=== PATIENT | male | born 1935 | race Caucasian/White ===

== ENCOUNTER 2017-05-14 11:40 | Inpatient (IN) | payer SELFPAY ==
[~2017-05-14] VITALS: Ht 170.2 cm; Wt 70.3 kg
--- NOTE | 2017-05-14 11:48 | NUR ---
pt walked to er with family members co coughing, hypoxia and tachypnea today, although the pt was on o2 at home.
--- NOTE | 2017-05-14 11:50 | NUR ---
replaced the nc with nrb on 15 litre, o2 sat improved to 96%.
[2017-05-14] MEDS ORDERED: AZIT250T PO (12:07)
[2017-05-14] MEDS ORDERED: LANS15CA13 PO (12:07)
[2017-05-14 12:22] LABS: BASOPHILS # (AUTO) 0.1 K/uL (0.0-8.0); BASOPHILS % (AUTO) 0.4 % (0.0-2.0); EOSINOPHILS # (AUTO) 0.2 K/uL (0.0-0.7); EOSINOPHILS % (AUTO) 1.2 % (0.0-7.0); LYMPHOCYTES # (AUTO) 0.9 K/UL (0.8-4.8); MEAN CORPUSCULAR HEMOGLOBIN 30.8 UUG (27.0-31.0); MEAN CORPUSCULAR HGB CONC 33 g/dL (32.0-37.0); MEAN CORPUSCULAR VOLUME 92.3 FL (82.0-92.0); MONOCYTES % (AUTO) 8.2 % (0.0-11.0); NEUTROPHILS # (AUTO) 10.3 K/UL (1.8-8.9); NEUTROPHILS % (AUTO) 83.2 % (38.5-71.5); PLATELET COUNT (AUTO) 229 K/UL (150-450); WHITE BLOOD COUNT (AUTO) 12.5 K/UL (4.0-11.2)
[2017-05-14 12:26] LABS: CARBON DIOXIDE 22 mmol/L (21-32); CHLORIDE 95 mmol/L (98-107); CREATININE 0.7 mg/dL (0.6-1.3); GLUCOSE 144 mg/dL (74-106); POTASSIUM 3.3 mmol/L (3.5-5.1); UREA NITROGEN, BLOOD 11 mg/dL (7-18)
[2017-05-14] MEDS ORDERED: ALBUTEROL SULFATE 2.5 MG/3 ML NEBU NEB ONE (12:30)
[2017-05-14 12:39] LABS: ALANINE AMINOTRANSFERASE 32 U/L (16-63); ALKALINE PHOSPHATASE 72 U/L (50-136); ASPARTATE AMINOTRANSFERASE 32 U/L (15-37); BILIRUBIN,DIRECT 0.4 mg/dL (0.0-0.2); TOTAL PROTEIN, SERUM 6.5 g/dL (6.4-8.2)
[2017-05-14] MEDS ORDERED: CLOPIDOGREL 75 MG TABLET PO ONE (13:00)
--- NOTE | 2017-05-14 13:10 | NUR ---
pt says feels better after the breathing tx, but is still 91% on mask. pt back to nrb with 15%, improved sat to 96%
[2017-05-14] MEDS ORDERED: CLOPIDOGREL 75 MG TABLET ONE (13:13)
[2017-05-14 13:59] LABS: *BILIRUBIN,URIN NEGATIVE (NEGATIVE); *BLOOD, URINE Trace-intact (NEGATIVE); *CLARITY,URINE CLEAR (CLEAR); *COLOR,URINE YELLOW (YELLOW); *KETONES,URINE NEGATIVE (NEGATIVE); *PROTEIN,URINE TRACE (NEGATIVE); LEUKOCYTE ESTERASE ,URINE NEGATIVE (NEGATIVE); NITRITE, URINE NEGATIVE (NEGATIVE); PH,URINE 6.5 (5.0-8.0); UGLUCOSE NEGATIVE (NEGATIVE)
[2017-05-14 14:06] LABS: BACTERIA,URINE NONE SEEN /HPF (NONE SEEN); MUCUS,URINE FEW /LPF (0-FEW); RBC,URINE 0-3 /HPF (0-3); SQUAMOUS EPITHELIAL CELL,UR FEW /HPF (NONE SEEN); WBC,URINE 0-3 /HPF (0-3)
[2017-05-14] MEDS ORDERED: IOHEXOL 350 100 ML INFUS..BTL ONE (14:14)
[2017-05-14] MEDS ORDERED: HEPARIN SODIUM,PORCINE/PF 100 UNIT/ML, 5ML SYR ONE (14:14)
[2017-05-14] MEDS ORDERED: IV NORMAL SALINE 250 ML IV ONE (14:14)
[2017-05-14 15:15] VITALS: BP 131/73
[2017-05-14] MEDS ORDERED: PIPERACILLIN SODIUM/TAZOBACTAM 3.375 G in IV DEXTROSE 5% 50 ML IV ONE (15:30)
[2017-05-14] MEDS ORDERED: PIPERACILLIN/TAZOBACTAM/D5W 50 ML IV ONE (15:47)
--- NOTE | 2017-05-14 16:49 | NUR ---
PT TRANSFERED TO FLOOR. PT STILL ON THE NRB, SAT 96%. AWARE.
--- NOTE | 2017-05-14 16:52 | NUR ---
FAMILY MEMBERS AT BEDSIDE THE WHOLE ER STAY. PT TALKING WITH THE FAMILY MEMBERS, TOLERATING NRB. PT VOIDED 2 TIMES IN THE URINAL. PT FAMILY MEMBERS PROVIDED SOME FOOD FOR PT.
[2017-05-14] MEDS ORDERED: MAGNESIUM HYDROXIDE 30 ML LIQUID UDC PO PRN (17:00)
[2017-05-14] MEDS ORDERED: ZOLPIDEM 5 MG TABLET PO PRN (17:00)
[2017-05-14] MEDS ORDERED: ONDANSETRON 4 MG/2 ML VIAL IV PRN (17:00)
--- NOTE | 2017-05-14 17:00 | NUR ---
ADMITTED FROM HOME VIA ER AN 81 YO MALE WITH CC OF SOB, DX PNEUMONIA ALERT AND VERBALLY RESPONSIVE ORIENTED X3 ON 15 LITERS NRM SATURATING 93%, WARM AND DRY SKIN NO ACUTE DISTRESS. DR SOSA AND SCAR CAMPBELL MADE AWARE OF ADMISSION. ROUTINE ADMISSION ASSESSMENT INITIATED. FAMILY AT BEDSIDE VERY SUPPORTIVE WITH CARE
[2017-05-14] MEDS ORDERED: FUROSEMIDE 20 MG/2 ML VIAL IV ONE (18:15)
[2017-05-14] MEDS: POTASSIUM CHLORIDE 50 ML IV SCH ×2 (18:42→20:01)
[2017-05-14] MEDS: IPRATROPIUM BROMIDE 0.5 MG/2.5 ML NEBU NEB PRN (19:11)
[2017-05-14] MEDS: ALBUTEROL SULFATE 2.5 MG/ 0.5 ML NEBU NEB PRN (19:11)
[2017-05-14] MEDS ORDERED: IPRATROPIUM BROMIDE 0.5 MG/2.5 ML NEBU NEB SCH (19:30)
[2017-05-14] MEDS ORDERED: ALBUTEROL SULFATE 2.5 MG/ 0.5 ML NEBU NEB SCH (19:30)
--- NOTE | 2017-05-14 19:30 | NUR ---
Report received. Patient AA, mildly restless but cooperative. On 100 % Non rebreather mask with continuous O2 sat monitoring. Family at bedside. Assessment completed. With KCl infusion to LFA IV site; patient c/o burning sensation to site. Warm compress provided. Addendum: 05/15/17 at 0049 by EUGENIO BLAKE RN Amended: Links added.
[2017-05-14 20:00] VITALS: BP 139/82
--- NOTE | 2017-05-14 21:00 | NUR ---
Voiding well after dose of Lasix given by am shift. Family remains at bedside. Plan of care discussed with and daughters. Very appreciative of care. Patient coughing non productively. Desaturates easily when removes O2 mask. Advised appropriately. Addendum: 05/15/17 at 0054 by EUGENIO BLAKE RN Amended: Links added.
[2017-05-14] MEDS: PIPERACILLIN/TAZOBACTAM/D5W 3.375 G in PREMIXED 1 EACH IV SCH (22:46)
[2017-05-14] MEDS: ACETAMINOPHEN 325 MG TABLET PO PRN (22:57)
[2017-05-15] VITALS (15 sets, daily range): BP systolic 106–147; BP diastolic 55–93
[2017-05-15] MEDS: IPRATROPIUM BROMIDE 0.5 MG/2.5 ML NEBU NEB PRN ×4 (00:55→22:47)
[2017-05-15] MEDS: ALBUTEROL SULFATE 2.5 MG/ 0.5 ML NEBU NEB PRN ×5 (00:55→22:47)
[2017-05-15] MEDS: PIPERACILLIN/TAZOBACTAM/D5W 3.375 G in PREMIXED 1 EACH IV SCH ×3 (05:47→21:12)
--- NOTE | 2017-05-15 06:00 | NUR ---
Slept poorly during the night. Voiding Q2-3H. Still desaturates when off O2 mask. Monitored closely. Telemetry: SR-SB with PVS.
[2017-05-15 06:34] LABS: BASOPHILS % (AUTO) 0.1 % (0.0-2.0); EOSINOPHILS # (AUTO) 0.4 K/uL (0.0-0.7); EOSINOPHILS % (AUTO) 3.2 % (0.0-7.0); HEMATOCRIT 37.1 % (40-50); HEMOGLOBIN 12.7 G/DL (14.0-18.0); LYMPHOCYTES # (AUTO) 1.1 K/UL (0.8-4.8); MEAN CORPUSCULAR HEMOGLOBIN 31.9 UUG (27.0-31.0); MEAN CORPUSCULAR HGB CONC 34 g/dL (32.0-37.0); MEAN CORPUSCULAR VOLUME 93.1 FL (82.0-92.0); MONOCYTES % (AUTO) 7.9 % (0.0-11.0); NEUTROPHILS # (AUTO) 10.7 K/UL (1.8-8.9); NEUTROPHILS % (AUTO) 80.8 % (38.5-71.5); PLATELET COUNT (AUTO) 246 K/UL (150-450); RED BLOOD CELL COUNT(AUTO) 3.98 MIL/UL (4.7-6.1); WHITE BLOOD COUNT (AUTO) 13.2 K/UL (4.0-11.2)
[2017-05-15] MEDS: PANTOPRAZOLE SODIUM 40 MG TABLET.DR PO SCH (06:35)
[2017-05-15 06:49] LABS: CARBON DIOXIDE 25 mmol/L (21-32); CHLORIDE 100 mmol/L (98-107); CHOLESTEROL 107 mg/dL (<200); CREATININE 0.8 mg/dL (0.6-1.3); GLUCOSE 105 mg/dL (74-106); HDL CHOLESTEROL 30 mg/dL (40-60); PHOSPHOROUS 2.9 mg/dL (2.5-4.9); POTASSIUM 3.4 mmol/L (3.5-5.1); TRIGLYCERIDES 62 MG/DL (30-150); UREA NITROGEN, BLOOD 13 mg/dL (7-18)
--- NOTE | 2017-05-15 07:15 | NUR ---
Results of am Serum K and Troponins called to Dr. Cabezas. Order received.
[2017-05-15] MEDS ORDERED: POTASSIUM CHLORIDE 20 MEQ TAB.PRT.SR PO ONE ×2 (07:30→18:00)
--- NOTE | 2017-05-15 07:40 | NUR ---
Pt.in bed,A/A/Ox4,no s/s of acute distress,denies pain @ time.
--- NOTE | 2017-05-15 08:40 | NUR ---
Pt.was seen by with new orders.
[2017-05-15] MEDS: ASPIRIN 81 MG TAB.CHEW PO SCH (09:01)
--- NOTE | 2017-05-15 09:14 | NUR ---
Family members at bedside,updated with pt.condition and plan of care.
[2017-05-15] MEDS ORDERED: FUROSEMIDE 20 MG/2 ML VIAL IV ONE (10:00)
--- NOTE | 2017-05-15 10:15 | NUR ---
Pt.was seen by ARTIS CAMPBELL R.NP with new orders,family at bedside updatew with pt.condition and plan of care.
[2017-05-15] MEDS ORDERED: methylPREDNISolone SOD SUCC 1,000 MG in IV DEXTROSE 5% 250 ML IV SCH ×2 (11:00→17:00)
--- NOTE | 2017-05-15 11:31 | NUR ---
Pt.BS 186 was not covered with insulin pt. NPO
--- NOTE | 2017-05-15 11:40 | NUR ---
Clinical Pharmacy Note: Vancomycin Dosing per Pharmacy Subjective: Vancomycin IV to start on this 81 y/o male for suspected infection (pna vs pulmonary fibrosis) ht 5' 7'' wt 150 lb Objective: BUN 13 Scr 0.8 WBC 13.2 Temperature 98.5 Assessment/Plan: Will start vancomycin 1000mg IVPB q18h for predicated vancomycin trough level of 16.5 mcg/ml at steady state. 1st dose is due today at 1100. Plan to draw vanco trough level prior to 4th dose (level not yet ordered). Will monitor renal function closely to adjust the dose if needed. Will monitor daily.
[2017-05-15] MEDS: VANCOMYCIN IV 1 G in PREMIXED 0 EACH IV SCH (11:56)
--- NOTE | 2017-05-15 12:30 | NUR ---
Pt.was seen by Gas Line Repairer.
--- NOTE | 2017-05-15 13:15 | NUR ---
Pt.was c/o on unable to urinate,got SOB Sat 76%on NRM was placed on flash.picking tech Sat to 87% notified.at bedside.
--- NOTE | 2017-05-15 13:30 | NUR ---
ordered to transfer pt.to ICU.
[2017-05-15 14:20] LABS: ABG BASE EXCESS -0.1 mmol/L; ABG HCO3 22.8 mmol/L; ABG PCO2 32.3 mmHg (35.0-45.0); ABG PH 7.467 (7.350-7.450); ABG PO2 324.9 mmHg (75.0-100.0); ABG SITE RIGHT RADIAL; ABG TOTAL HEMOGLOBIN 13.7 G/dL (13.5-18.0); COHb 0.8 % (0.5-1.5); MetHb 0.5 % (0.0-1.5); O2Hb 98.7 % (94.0-97.0); VENT MODE BIPAP
--- NOTE | 2017-05-15 14:25 | NUR ---
ABBEY resolt was reported to ,no orders.
--- NOTE | 2017-05-15 15:15 | NUR ---
Submitted the patient's Facesheet, H&P, ER Notes, Consults, Progress Notes, labs and med list to [facility] [ [phone]; ] to the attention of Zeina. CM/SW will follow-up.
--- NOTE | 2017-05-15 15:30 | NUR ---
Noted that pt.has freq PVC's ENGAGEMENT QUALITY CONSULTANT:ARTIS CAMPBELL notified,ordered bmp and Mg+ labs.
[2017-05-15] MEDS: ACETYLCYSTEINE 10% 4ML VIAL NEB SCH ×2 (15:39→22:47)
[2017-05-15 16:06] LABS: CARBON DIOXIDE 23 mmol/L (21-32); CHLORIDE 94 mmol/L (98-107); GLUCOSE 226 mg/dL (74-106); MAGNESIUM 1.9 mg/dL (1.8-2.4); POTASSIUM 3.4 mmol/L (3.5-5.1); UREA NITROGEN, BLOOD 13 mg/dL (7-18)
[2017-05-15] MEDS: METHYLPREDNISOLONE SOD SUCC IV SCH ×2 (17:24→23:38)
[2017-05-15] MEDS: DEXTROSE 5% IV SCH ×2 (17:24→23:38)
[2017-05-15] MEDS ORDERED: MAGNESIUM OXIDE 400 MG TABLET PO ONE (18:00)
--- NOTE | 2017-05-15 18:04 | NUR ---
PT WAS PLACED ON BIPAP DUE TO SOB. CURRENT SETTINGS, IPAP 10, EPAP 5, RR 16, 50% FIO2. DOING FAIRLY WELL ON BIPAP BUT PT DOES BECOME TACHYPNEIC AT TIMES. ALARMS ARE ON AND AUDIBLE, BVM AT BEDSIDE. WILL CONTINUE TO MONITOR.
--- NOTE | 2017-05-15 20:21 | NUR ---
RECEIVED PATIENT ON BIPAP WITH THE FOLLOWING SETTINGS OF IPAP 10, EPAP5, RATE 16, AND 50% FIO2. PATIENT'S SPO2 95%. ALARMS CHECKED AND THEY ARE ON AND AUDIBLE. AMBU BAG IS BY BEDSIDE. PATIENT IS ALERT AND AWAKE, DOING WELL ON CURRENT SETTINGS. NO SOB NOTED AT THIS TIME. WILL CONTINUE TO MONITOR PATIENT THROUGHOUT SHIFT.
[2017-05-15] MEDS ORDERED: TRAZODONE 50 MG TABLET PO SCH (21:00)
[2017-05-15] MEDS: SILDENAFIL 20 MG TABLET PO SCH (21:08)
[2017-05-16] VITALS (25 sets, daily range): BP systolic 88–112; BP diastolic 41–70
[2017-05-16] MEDS: VANCOMYCIN IV 1 G in PREMIXED 0 EACH IV SCH ×2 (04:05→23:44)
[2017-05-16 05:05] LABS: CARBON DIOXIDE 24 mmol/L (21-32); CHLORIDE 99 mmol/L (98-107); GLUCOSE 201 mg/dL (74-106); MAGNESIUM 2.2 mg/dL (1.8-2.4); PHOSPHOROUS 3.1 mg/dL (2.5-4.9); POTASSIUM 4.1 mmol/L (3.5-5.1); UREA NITROGEN, BLOOD 15 mg/dL (7-18)
[2017-05-16 05:06] LABS: EOSINOPHILS # (AUTO) 0.2 K/uL (0.0-0.7); EOSINOPHILS % (AUTO) 0.9 % (0.0-7.0); HEMATOCRIT 35.6 % (40-50); HEMOGLOBIN 12.2 G/DL (14.0-18.0); LYMPHOCYTES # (AUTO) 0.7 K/UL (0.8-4.8); LYMPHOCYTES % (AUTO) 3.8 % (20.5-51.5); MEAN CORPUSCULAR HEMOGLOBIN 32.3 UUG (27.0-31.0); MEAN CORPUSCULAR HGB CONC 34 g/dL (32.0-37.0); MEAN CORPUSCULAR VOLUME 94.4 FL (82.0-92.0); MONOCYTES # (AUTO) 0.5 K/UL (0.1-1.30); MONOCYTES % (AUTO) 2.7 % (0.0-11.0); NEUTROPHILS # (AUTO) 18.3 K/UL (1.8-8.9); NEUTROPHILS % (AUTO) 92.6 % (38.5-71.5); PLATELET COUNT (AUTO) 196 K/UL (150-450); RED BLOOD CELL COUNT(AUTO) 3.77 MIL/UL (4.7-6.1); WHITE BLOOD COUNT (AUTO) 19.7 K/UL (4.0-11.2)
[2017-05-16] MEDS: DEXTROSE 5% IV SCH ×3 (05:48→17:38)
[2017-05-16] MEDS: METHYLPREDNISOLONE SOD SUCC IV SCH ×3 (05:48→17:38)
[2017-05-16] MEDS: SILDENAFIL 20 MG TABLET PO SCH ×3 (05:49→21:10)
[2017-05-16] MEDS: PANTOPRAZOLE SODIUM 40 MG TABLET.DR PO SCH (06:00)
[2017-05-16] MEDS: PIPERACILLIN/TAZOBACTAM/D5W 3.375 G in PREMIXED 1 EACH IV SCH ×3 (06:29→21:11)
[2017-05-16] MEDS: ACETYLCYSTEINE 10% 4ML VIAL NEB SCH ×3 (06:55→23:15)
[2017-05-16] MEDS: ALBUTEROL SULFATE 2.5 MG/ 0.5 ML NEBU NEB PRN ×3 (06:55→23:15)
[2017-05-16] MEDS: IPRATROPIUM BROMIDE 0.5 MG/2.5 ML NEBU NEB PRN ×3 (06:55→23:15)
--- NOTE | 2017-05-16 07:18 | NUR ---
PT RECEIVED ON NIV V-60, AWAKE AND ALERT, SETTINGS IPAP 10, EPAP 5, RATE 16, FIO2 50%, PT ON MEDIUM MASK, PROTECTA-GEL IN PLACE FOR SKIN INTEGRITY, MASK ADJUSTED ALARMS ON AND AUDIBLE, INLINE TX GIVEN ORDERED, TOLERATED WELL, NO ADVERSE REACTION NOTED, SPUTUM SAMPLE COLLECT, NT SUCTIONED PT, FOR C & S, ASSISTED BY SHRUTHI LAIRD, NO COMPLICATIONS DURING AND AFTER PROCEDURE. WILL CONTINUE TO MONITOR
--- NOTE | 2017-05-16 07:51 | NUR ---
Pt.in bed,A/A/Ox3, no s/s of acute distress,denies pain @ time.
[2017-05-16] MEDS: ASPIRIN 81 MG TAB.CHEW PO SCH (07:56)
[2017-05-16] MEDS: HYDROCODONE/APAP 5-325MG TABLET PO PRN (07:56)
[2017-05-16] MEDS: Z GUARD REMEDY PASTE 57 GM TUBE TOP PRN (07:57)
--- NOTE | 2017-05-16 08:32 | NUR ---
Pt.sleeping .Family members at bedside,updated with pt.condition and plan of care.
--- NOTE | 2017-05-16 08:36 | NUR ---
Clinical Pharmacy Note: Vancomycin Dosing per Pharmacy Subjective: Vancomycin IV to continue on this 81 y/o male for suspected infection (pna vs pulmonary fibrosis) ht 5' 7'' wt 150 lb Objective: BUN 15 Scr 1 WBC 19.7 (on solum-medrol) Temperature 97.8 Assessment/Plan: Will continue vancomycin 1000mg IVPB q18h for today. 3rd dose is due today at 2300. Plan to draw vanco trough level prior to 4th dose (level not yet ordered). Will monitor renal function closely to adjust the dose if needed. Will monitor daily.
--- NOTE | 2017-05-16 09:00 | NUR ---
Pt.BP low notified ,pt.was started on NS IVF.
[2017-05-16] MEDS: IV NS 1000 ML 1,000 ML IV PRN (09:27)
[2017-05-16] MEDS ORDERED: DEXTROSE 50% 50 ML DISP.SYRIN IV PRN (09:30)
--- NOTE | 2017-05-16 10:10 | NUR ---
Troponin 12.024 was reported to and ,care out new orders.
[2017-05-16] MEDS: ENOXAPARIN SODIUM 80 MG/0.8 ML DISP.SYRIN SQ SCH ×2 (10:51→22:05)
--- NOTE | 2017-05-16 11:00 | NUR ---
stat EKG done reported to
[2017-05-16] MEDS: BLOOD SUGAR DIAGNOSTIC 1 EACH STRIP VI SCH ×3 (11:44→21:02)
[2017-05-16] MEDS: INSULIN REGULAR, HUMAN 300 UNIT/3 ML VIAL SQ PRN ×2 (11:45→17:40)
--- NOTE | 2017-05-16 13:20 | NUR ---
Pt.was seen by with new orders.
--- NOTE | 2017-05-16 15:45 | NUR ---
Pt.was seen by .
--- NOTE | 2017-05-16 16:10 | NUR ---
Family members at updated updated with pt.conditions.
[2017-05-16] MEDS: GUAIFENESIN SUGAR FREE 100 MG/5 ML UDC PO PRN (17:37)
[2017-05-16] MEDS: ATORVASTATIN 20 MG TABLET PO SCH (20:15)
[2017-05-16] MEDS: LACTOBACILLUS RHAMNOSUS GG 1 EACH CAPSULE PO SCH (20:15)
[2017-05-16] MEDS: MIRALAX 17 GM POWD.PACK PO SCH (20:15)
[2017-05-16] MEDS: INSULIN REGULAR, HUMAN 300 UNITS/3 ML VIAL SQ PRN (21:10)
[2017-05-16] MEDS: TEMAZEPAM 7.5 MG CAPSULE PO PRN (22:02)
--- NOTE | 2017-05-16 23:07 | NUR ---
Noted O2 desaturation on high flow nasal cannula. Replaced with BiPAP at this time.
[2017-05-17] VITALS (24 sets, daily range): BP systolic 90–122; BP diastolic 42–73
[2017-05-17] MEDS: METHYLPREDNISOLONE SOD SUCC IV SCH ×5 (00:36→23:54)
[2017-05-17] MEDS: DEXTROSE 5% IV SCH ×5 (00:36→23:54)
[2017-05-17] MEDS: IV NS 1000 ML 1,000 ML IV PRN (01:06)
[2017-05-17] MEDS: HYDROCODONE/APAP 5-325MG TABLET PO PRN ×2 (04:12→22:43)
[2017-05-17 05:17] LABS: ALANINE AMINOTRANSFERASE 44 U/L (16-63); ALKALINE PHOSPHATASE 103 U/L (50-136); ASPARTATE AMINOTRANSFERASE 64 U/L (15-37); BILIRUBIN,TOTAL 0.8 mg/dL (0.2-1.0); CARBON DIOXIDE 24 mmol/L (21-32); CHLORIDE 103 mmol/L (98-107); CREATININE 1.2 mg/dL (0.6-1.3); GLUCOSE 149 mg/dL (74-106); MAGNESIUM 2.3 mg/dL (1.8-2.4); PHOSPHOROUS 2.8 mg/dL (2.5-4.9); POTASSIUM 3.9 mmol/L (3.5-5.1); UREA NITROGEN, BLOOD 26 mg/dL (7-18)
--- NOTE | 2017-05-17 05:25 | NUR ---
pt remain on NIV-60, awake alert, no s/s distress noted, alarms on and audible. tolerated settings well. mask adjusted prn.
--- NOTE | 2017-05-17 05:51 | NUR ---
Noted bradycardia with HR as low as 44 (patient sleeping) BP decreased, but maintains baseline. MAP WNL. See Vital Signs
[2017-05-17 05:58] LABS: EOSINOPHILS # (AUTO) 0.1 K/uL (0.0-0.7); EOSINOPHILS % (AUTO) 0.3 % (0.0-7.0); HEMATOCRIT 33.5 % (40-50); HEMOGLOBIN 11.6 G/DL (14.0-18.0); LYMPHOCYTES # (AUTO) 0.8 K/UL (0.8-4.8); LYMPHOCYTES % (AUTO) 3.7 % (20.5-51.5); MEAN CORPUSCULAR HEMOGLOBIN 32.3 UUG (27.0-31.0); MEAN CORPUSCULAR HGB CONC 35 g/dL (32.0-37.0); MEAN CORPUSCULAR VOLUME 93.5 FL (82.0-92.0); MONOCYTES % (AUTO) 4.4 % (0.0-11.0); NEUTROPHILS # (AUTO) 20.1 K/UL (1.8-8.9); NEUTROPHILS % (AUTO) 91.6 % (38.5-71.5); PLATELET COUNT (AUTO) 230 K/UL (150-450); RED BLOOD CELL COUNT(AUTO) 3.58 MIL/UL (4.7-6.1)
[2017-05-17] MEDS: SILDENAFIL 20 MG TABLET PO SCH ×3 (06:04→21:05)
[2017-05-17] MEDS: PANTOPRAZOLE SODIUM 40 MG TABLET.DR PO SCH (06:04)
[2017-05-17] MEDS: PIPERACILLIN/TAZOBACTAM/D5W 3.375 G in PREMIXED 1 EACH IV SCH ×3 (06:04→21:17)
--- NOTE | 2017-05-17 07:30 | NUR ---
Pt.in bed,A/A/Ox3, no s/s of acute distress,denies pain @ time.
[2017-05-17] MEDS: BLOOD SUGAR DIAGNOSTIC 1 EACH STRIP VI SCH ×4 (07:31→21:16)
[2017-05-17] MEDS: IPRATROPIUM BROMIDE 0.5 MG/2.5 ML NEBU NEB PRN ×2 (07:32→14:38)
[2017-05-17] MEDS: ALBUTEROL SULFATE 2.5 MG/ 0.5 ML NEBU NEB PRN ×2 (07:32→14:38)
[2017-05-17] MEDS: ACETYLCYSTEINE 10% 4ML VIAL NEB SCH ×2 (07:33→14:38)
--- NOTE | 2017-05-17 07:45 | NUR ---
Pt.was seen by .
[2017-05-17] MEDS: INSULIN REGULAR, HUMAN 300 UNIT/3 ML VIAL SQ PRN ×3 (07:48→17:23)
[2017-05-17] MEDS: LACTOBACILLUS RHAMNOSUS GG 1 EACH CAPSULE PO SCH ×2 (08:34→21:05)
[2017-05-17] MEDS: MIRALAX 17 GM POWD.PACK PO SCH (08:34)
[2017-05-17] MEDS: ASPIRIN 81 MG TAB.CHEW PO SCH (08:34)
[2017-05-17] MEDS: ENOXAPARIN SODIUM 80 MG/0.8 ML DISP.SYRIN SQ SCH ×2 (08:36→22:01)
--- NOTE | 2017-05-17 09:10 | NUR ---
PT RECEIVED ON BIPAP, PLACED ON HIGH FLOW CANNULA, 55 LPM, 100% FIO2. CURRENTLY TOLERATING FAIRLY WELL, NO SOB AT THIS TIME. BVM AT BEDSIDE. WILL CONTINUE TO MONITOR AND MONITOR FOR RESPIRATORY DISTRESS.
[2017-05-17] MEDS: GUAIFENESIN SUGAR FREE 100 MG/5 ML UDC PO PRN ×3 (09:15→23:49)
[2017-05-17] MEDS: Z GUARD REMEDY PASTE 57 GM TUBE TOP PRN ×2 (09:15→13:38)
--- NOTE | 2017-05-17 11:41 | NUR ---
Pt.up in the chair ,tolerating well.Family members at bedside,updated with pt.condition and plan of care.
--- NOTE | 2017-05-17 13:30 | NUR ---
Pt.was seen by
--- NOTE | 2017-05-17 16:21 | NUR ---
Clinical Pharmacy Note: Vancomycin Dosing per Pharmacy Subjective: Vancomycin IV to continue on this 81 y/o male for suspected infection (pna vs pulmonary fibrosis) ht 5' 7'' wt 150 lb Objective: BUN 26 Scr 1.2 WBC 22 (on solum-medrol) Temperature 98.2 Assessment/Plan: Will continue vancomycin 1000mg IVPB q18h for today. Plan to draw vanco trough level prior to 4th dose (level ordered today at 1630). Will monitor renal function closely to adjust the dose if needed. Will monitor daily. Addendum: 05/17/17 at 1743 by BANDAR CONCEPCION ADM TROUGH VALUE 7.0; RECALCULATED VANCOMYCIN @ 1GM Q11H STARTING @ 1800 TODAY ( DOSE #1) WITH PREDICTED PEAK OF 35 AND TROUGH OF 16 WILL. WILL MONITOR TROUGH PRIOR TO 4TH DOSE AND ADJUST NECESSARY. WILL CONTINUE TO MONITOR
--- NOTE | 2017-05-17 17:43 | NUR ---
FAMILY MEMBERS AT BEDSIDE,UPDATED WITH PT.CONDITION AND PLAN OF CARE.
[2017-05-17] MEDS: VANCOMYCIN IV 1 G in PREMIXED 0 EACH IV SCH (18:04)
[2017-05-17] MEDS: ATORVASTATIN 20 MG TABLET PO SCH (21:05)
[2017-05-17] MEDS: TEMAZEPAM 7.5 MG CAPSULE PO PRN (21:06)
[2017-05-17] MEDS: INSULIN REGULAR, HUMAN 300 UNITS/3 ML VIAL SQ PRN (21:30)
--- NOTE | 2017-05-17 22:05 | NUR ---
PT WAS ON VAPOTHERM, HIGH FLOW SYSTEM, WITH 100% @ 45L.M, PT DOES BREATH SOMEWHAT LABORED, SAT 93-94% , AT FIRST WITH VERY RAPID BREATHING RR35-39, THEN GOT SLIGHT SOB, WITH DECREASE IN SAT BELOW 84% , CALLED BY CCU NURSE, TO PLACE PT BACK ON BI/PAP @ 21:15 ON 100% WITH FULL MASK ,SETTINGS, 10/5 PSV 5 , R16, RR40, PT STILL WITH HIGH RR38, SAT 89-90% AT THIS TIME, WILL MONITOR CLOSELY, NEB RX GIVEN LATER WITH ALBUTEROL/ ATROVENT WITH Q8 HOURS MUCOMYST AT 2330. Armand COOLEYP Addendum: 05/17/17 at 2210 by MYESHA CARRILLO RT Amended: Links added.
[2017-05-18] VITALS (23 sets, daily range): BP systolic 93–138; BP diastolic 49–100
[2017-05-18] MEDS: ACETYLCYSTEINE 10% 4ML VIAL NEB SCH ×4 (00:04→23:07)
[2017-05-18] MEDS: IPRATROPIUM BROMIDE 0.5 MG/2.5 ML NEBU NEB PRN ×2 (00:06→23:07)
[2017-05-18] MEDS: HYDROCODONE/APAP 5-325MG TABLET PO PRN (03:39)
[2017-05-18] MEDS: VANCOMYCIN IV 1 G in PREMIXED 0 EACH IV SCH ×2 (04:46→15:33)
[2017-05-18 05:17] LABS: HEMATOCRIT 33.8 % (40-50); HEMOGLOBIN 11.5 G/DL (14.0-18.0); LYMPHOCYTES # (AUTO) 0.5 K/UL (0.8-4.8); LYMPHOCYTES % (AUTO) 2.5 % (20.5-51.5); MEAN CORPUSCULAR HEMOGLOBIN 32.3 UUG (27.0-31.0); MEAN CORPUSCULAR HGB CONC 34 g/dL (32.0-37.0); MEAN CORPUSCULAR VOLUME 95.1 FL (82.0-92.0); MONOCYTES # (AUTO) 0.2 K/UL (0.1-1.30); NEUTROPHILS # (AUTO) 18.1 K/UL (1.8-8.9); NEUTROPHILS % (AUTO) 96.5 % (38.5-71.5); PLATELET COUNT (AUTO) 219 K/UL (150-450); RED BLOOD CELL COUNT(AUTO) 3.55 MIL/UL (4.7-6.1); WHITE BLOOD COUNT (AUTO) 18.8 K/UL (4.0-11.2)
[2017-05-18 05:23] LABS: ALANINE AMINOTRANSFERASE 60 U/L (16-63); ALKALINE PHOSPHATASE 142 U/L (50-136); ASPARTATE AMINOTRANSFERASE 60 U/L (15-37); CARBON DIOXIDE 25 mmol/L (21-32); CHLORIDE 103 mmol/L (98-107); GLUCOSE 147 mg/dL (74-106); MAGNESIUM 2.2 mg/dL (1.8-2.4); PHOSPHOROUS 3.2 mg/dL (2.5-4.9); POTASSIUM 4.2 mmol/L (3.5-5.1); TOTAL PROTEIN, SERUM 5.8 g/dL (6.4-8.2); UREA NITROGEN, BLOOD 26 mg/dL (7-18)
[2017-05-18] MEDS: PANTOPRAZOLE SODIUM 40 MG TABLET.DR PO SCH (06:19)
[2017-05-18] MEDS: PIPERACILLIN/TAZOBACTAM/D5W 3.375 G in PREMIXED 1 EACH IV SCH ×3 (06:20→21:36)
[2017-05-18] MEDS: SILDENAFIL 20 MG TABLET PO SCH ×3 (06:20→21:37)
[2017-05-18] MEDS: METHYLPREDNISOLONE SOD SUCC IV SCH ×4 (06:50→23:49)
[2017-05-18] MEDS: DEXTROSE 5% IV SCH ×4 (06:50→23:49)
[2017-05-18] MEDS: BLOOD SUGAR DIAGNOSTIC 1 EACH STRIP VI SCH ×4 (06:53→20:33)
[2017-05-18] MEDS: ALBUTEROL SULFATE 2.5 MG/ 0.5 ML NEBU NEB PRN ×2 (07:30→23:07)
[2017-05-18] MEDS: MIRALAX 17 GM POWD.PACK PO SCH (08:01)
[2017-05-18] MEDS: ASPIRIN 81 MG TAB.CHEW PO SCH (08:01)
[2017-05-18] MEDS: LACTOBACILLUS RHAMNOSUS GG 1 EACH CAPSULE PO SCH ×2 (08:01→20:33)
[2017-05-18] MEDS: ENOXAPARIN SODIUM 80 MG/0.8 ML DISP.SYRIN SQ SCH ×2 (08:03→20:35)
[2017-05-18] MEDS: INSULIN REGULAR, HUMAN 300 UNIT/3 ML VIAL SQ PRN ×3 (08:24→16:36)
--- NOTE | 2017-05-18 10:34 | NUR ---
Clinical Pharmacy Note: Vancomycin Dosing per Pharmacy Subjective: Vancomycin IV to continue on this 81 y/o male for suspected infection (pna vs pulmonary fibrosis) ht 5' 7'' wt 150 lb Objective: BUN 26 Scr 1.0 WBC 18.8 (on solum-medrol) Temperature 97.6 Assessment/Plan: Will continue same dose of vancomycin 1000mg IVPB q11h for today. Third dose is due today at 1600. Plan to draw vanco trough level prior to 4th dose (level ordered for tomorrow at 0230- RN has been informed to hold 0300 dose if trough is above 20 mcg/ml). Rph will check trough in am & adjust the dose if needed. Will monitor daily.
[2017-05-18 12:15] LABS: ABG BASE EXCESS -0.5 mmol/L; ABG HCO3 22.9 mmol/L; ABG PCO2 33.6 mmHg (35.0-45.0); ABG PH 7.452 (7.350-7.450); ABG SITE RIGHT RADIAL; ABG TOTAL HEMOGLOBIN 12.2 G/dL (13.5-18.0); COHb 1.1 % (0.5-1.5); MetHb 0.4 % (0.0-1.5); O2Hb 80.3 % (94.0-97.0); VENT MODE BIPAP
--- NOTE | 2017-05-18 13:38 | NUR ---
Dr. Mejias (fireworks inspector) here to see pt. Full report given. New orders received and carried out.
--- NOTE | 2017-05-18 15:13 | NUR ---
pATIENT RECIEVED ON BIPAP 07/27, RR16, 60% fIO2. PLACED PATIENT ON HIGHFLOW VAPOTHERM WITH FIO2 70%. PATIENT UNABLE TO MAINTAIN O2 SATURATION. PLACED BACK ON BIPAP WITH ORDERED SETTINGS OF 10 RR16, FIO2 60%. ABG WAS DRAWN. PER ABG/MD BIPAP CHANGES MADE 05/03. PATIENT COMPLAINED OF TOO MUCH PRESSURE. PER ORDER, TITRATED IPAP DOWN TO 10, INCREASED EPAP TO 7 TO IMPROVE OXYGENATION. PATIENT STATES HE IS MUCH MORE COMFORTABLE, PATIENT STILL ON 60% fIO2. SHRUTHI PIERRE MADE AWARE OF NEW SETTINGS. INLINE TREATMENTS ADMINISTERED AND TOLERATED WELL. NO ADVERSE REACTIONS NOTED. PROTECTA GEL INPLACE FOR SKIN INTEGRITY. MASK READJUSTED THROUGH SHIFT. AMBU BAG AT BEDSIDE. WILL CONTINUE TO MONITOR.
--- NOTE | 2017-05-18 19:22 | NUR ---
End of shift: Pt resting in bed awake and alert with BiPAP settings as follows: 10/7, Rate 16, and 70% FiO2. Fall precautions and safety measures maintained. litharge mill operator and BiPAP settings alarms working properly wnl. IVF tko right forearm. All needs met. Pt stable and nad noted.
--- NOTE | 2017-05-18 19:30 | NUR ---
Report received. Patient AA, mildly restless, appears anxious and fidgety. Sat 70's-80's, tachypneic. Lips cyanotic. Patient advised appropriately. HOB elevated above 30 degrees at all times. RT at bedside. Dr. Wilson here; aware of patient's condition. No ABGs for now as per MD. RT and RN stayed with patient. FIO2 increased to 100% from 60%. Sat improved. Patient monitored closely. Addendum: 05/19/17 at 0111 by EUGENIO BLAKE RN Amended: Links added.
--- NOTE | 2017-05-18 19:50 | NUR ---
PT RECEIVED ON BIPAP SETTINGS OF /, RR 16, FIO2 70%. UPON ARRIVAL TO ROOM, PT WAS AGITATED AND DESATING TO HIGH 70'S. MASK WAS READJUSTED PER PT COMFORT. SPO2 REMAINED IN THE LOW 80'S. FIO2 INCREASED TO 100%. RN AWARE OF CHANGE. SPO2 RANGING FROM 92-96% AT THIS TIME. BVM IS CURRENTLY AT BEDSIDE. PROTECTA GEL IS IN PLACE. WILL CONTINUE TO MONITOR PATIENT STATUS THROUGHOUT SHIFT. WILL TITRATE O2 PRN ACCORDINGLY THROUGHOUT SHIFT.
[2017-05-18] MEDS: ATORVASTATIN 20 MG TABLET PO SCH (20:33)
[2017-05-18] MEDS: INSULIN REGULAR, HUMAN 300 UNITS/3 ML VIAL SQ PRN (20:34)
[2017-05-18] MEDS: ACETAMINOPHEN 325 MG TABLET PO PRN (20:36)
[2017-05-18] MEDS: Z GUARD REMEDY PASTE 57 GM TUBE TOP PRN (20:37)
[2017-05-19] VITALS (23 sets, daily range): BP systolic 90–153; BP diastolic 57–88
--- NOTE | 2017-05-19 | NUR ---
Patient desaturates easily when off BIPAP mask. HR up to 90's with PVCs and RR up to 40's. Stayed with patient; reassured and advised. Sat improves after a min or 2. Addendum: 05/19/17 at 0636 by EUGENIO BLAKE RN Amended: Links added.
--- NOTE | 2017-05-19 03:15 | NUR ---
Vancomycin 1 Gm IVPB given. Vancomycin Level=7.1. Addendum: 05/19/17 at 0414 by EUGENIO BLAKE RN Amended: Links added. Addendum: 05/19/17 at 0414 by EUGENIO BLAKE RN Amended: Links added.
[2017-05-19] MEDS: VANCOMYCIN IV 1 G in PREMIXED 0 EACH IV SCH (03:17)
[2017-05-19] MEDS: METHYLPREDNISOLONE SOD SUCC IV SCH ×3 (05:16→17:36)
[2017-05-19] MEDS: DEXTROSE 5% IV SCH ×3 (05:16→17:36)
[2017-05-19 05:21] LABS: HEMATOCRIT 35.9 % (40-50); HEMOGLOBIN 12.1 G/DL (14.0-18.0); LYMPHOCYTES # (AUTO) 0.7 K/UL (0.8-4.8); LYMPHOCYTES % (AUTO) 3.4 % (20.5-51.5); MEAN CORPUSCULAR HEMOGLOBIN 31.8 UUG (27.0-31.0); MEAN CORPUSCULAR HGB CONC 34 g/dL (32.0-37.0); MEAN CORPUSCULAR VOLUME 94.9 FL (82.0-92.0); MONOCYTES # (AUTO) 0.4 K/UL (0.1-1.30); NEUTROPHILS # (AUTO) 19.2 K/UL (1.8-8.9); NEUTROPHILS % (AUTO) 94.6 % (38.5-71.5); PLATELET COUNT (AUTO) 244 K/UL (150-450); RED BLOOD CELL COUNT(AUTO) 3.78 MIL/UL (4.7-6.1); WHITE BLOOD COUNT (AUTO) 20.3 K/UL (4.0-11.2)
[2017-05-19] MEDS: ACETAMINOPHEN 325 MG TABLET PO PRN ×2 (05:21→19:39)
[2017-05-19] MEDS: BLOOD SUGAR DIAGNOSTIC 1 EACH STRIP VI SCH ×4 (05:32→20:24)
[2017-05-19 05:34] LABS: CARBON DIOXIDE 26 mmol/L (21-32); CHLORIDE 104 mmol/L (98-107); CREATININE 0.9 mg/dL (0.6-1.3); GLUCOSE 161 mg/dL (74-106); MAGNESIUM 2.3 mg/dL (1.8-2.4); PHOSPHOROUS 3.1 mg/dL (2.5-4.9); POTASSIUM 3.9 mmol/L (3.5-5.1); UREA NITROGEN, BLOOD 25 mg/dL (7-18)
[2017-05-19] MEDS: INSULIN REGULAR, HUMAN 300 UNIT/3 ML VIAL SQ PRN ×2 (05:34→11:56)
[2017-05-19] MEDS: SILDENAFIL 20 MG TABLET PO SCH ×3 (05:45→21:47)
[2017-05-19] MEDS ORDERED: SILDENAFIL 20 MG TABLET ONE (05:48)
--- NOTE | 2017-05-19 06:00 | NUR ---
Still desaturates easily when taken off BIPAP mask for oral care, suctioning and po medications. Patient advised appropriately and cooperates well with care. HOB elevated above 30 degrees at all times. With non productive cough. FIO2 decreased to 90% by RT. Patient monitored closely. Addendum: 05/19/17 at 0633 by EUGENIO BLAKE RN Amended: Links added.
[2017-05-19] MEDS: PIPERACILLIN/TAZOBACTAM/D5W 3.375 G in PREMIXED 1 EACH IV SCH ×3 (06:15→21:48)
[2017-05-19] MEDS: PANTOPRAZOLE SODIUM 40 MG TABLET.DR PO SCH (06:16)
[2017-05-19] MEDS: IV NORMAL SALINE 250 ML IV PRN (06:46)
[2017-05-19] MEDS: IPRATROPIUM BROMIDE 0.5 MG/2.5 ML NEBU NEB PRN ×2 (07:18→22:44)
[2017-05-19] MEDS: ALBUTEROL SULFATE 2.5 MG/ 0.5 ML NEBU NEB PRN ×3 (07:18→22:44)
[2017-05-19] MEDS: ACETYLCYSTEINE 10% 4ML VIAL NEB SCH ×3 (07:19→22:44)
[2017-05-19] MEDS: MIRALAX 17 GM POWD.PACK PO SCH (09:57)
[2017-05-19] MEDS: ENOXAPARIN SODIUM 80 MG/0.8 ML DISP.SYRIN SQ SCH ×2 (09:58→20:28)
[2017-05-19] MEDS: LACTOBACILLUS RHAMNOSUS GG 1 EACH CAPSULE PO SCH ×2 (09:58→20:27)
[2017-05-19] MEDS: ASPIRIN 81 MG TAB.CHEW PO SCH (09:58)
[2017-05-19] MEDS: VANCOMYCIN IV 1,250 MG in IV DEXTROSE 5% 500 ML IV SCH ×2 (11:30→19:39)
[2017-05-19] MEDS ORDERED: ENOXAPARIN SODIUM 30 MG/0.3 ML DISP.SYRIN SUBCUT SCH ×2 (11:41→11:45)
--- NOTE | 2017-05-19 15:02 | NUR ---
Clinical Pharmacy Note: Vancomycin Dosing per Pharmacy Subjective: Vancomycin IV to continue on this 81 y/o male for suspected infection (pna vs pulmonary fibrosis) ht 5' 7'' wt 150 lb Objective: BUN 25 Scr 0.9 WBC 20.3 (on solum-medrol) Temperature 97.7 Vancomycin trough 7.1 today at 0230 Assessment/Plan: Since Vancomycin trough is under the therapeutic range, will increase dose to 1250mg IV every 8hrs(first dose given today at 1100) Plan to draw vanco trough level prior to 4th dose (ordered tomorrow at 1030) for expected trough around 16. Rph will check trough in am & adjust the dose if needed. Will monitor daily.
[2017-05-19] MEDS ORDERED: MORPHINE SULFATE 2 MG/1 ML DISP.SYRIN IV SCH (15:30)
[2017-05-19] MEDS: MORPHINE SULFATE 4 MG/1 ML DISP.SYRIN IV SCH ×2 (16:23→20:27)
--- NOTE | 2017-05-19 19:30 | NUR ---
Report received. Patient awake, appears confused but cooperative. Fidgety and mildly restless. On BIPAP; Sat in the 80's, tachypneic. Skin warm and dry. Patient reoriented and advised appropriately. Coughing non productively. Addendum: 05/19/17 at 2105 by EUGENIO BLAKE RN Amended: Links added.
--- NOTE | 2017-05-19 19:44 | NUR ---
Received pt on BiPAP with the following settings of I-14, E-7, PS-7, RR-16, FIO2-100%. Pt tachypneic. BiPAP mask adjusted. Protecta gel is under the mask. O2 saturation at High 80's. According to pt it is too much air for him. 20:02. Due to MD order to titrate BiPAP settings for pt's comfort, decreased IPAP to 10. Pt feels much better. RN Monet aware. Alarms on and audible. Resus. bag at bedside.
--- NOTE | 2017-05-19 20:00 | NUR ---
RT at bedside; BIPAP settings discussed. Patient medicated with Tylenol for generalized discomfort. Confirmed too much air flow. Sat still in the 80's. Due to MD's orders to titrate BIPAP settings for patient comfort, IPAP decreased to 10 from 14 by RT. Patient feels better afterwards. Addendum: 05/19/17 at 2117 by EUGENIO BLAKE RN Amended: Links added.
[2017-05-19] MEDS: INSULIN REGULAR, HUMAN 300 UNITS/3 ML VIAL SQ PRN (20:25)
[2017-05-19] MEDS: ATORVASTATIN 20 MG TABLET PO SCH (20:27)
--- NOTE | 2017-05-19 21:00 | NUR ---
Sleeping on and off after Tylenol. Sat 87-93%.
[2017-05-19] MEDS ORDERED: TEMAZEPAM 7.5 MG CAPSULE PO PRN (21:15)
[2017-05-19] MEDS ORDERED: TEMAZEPAM 15 MG CAPSULE PO PRN (21:15)
--- NOTE | 2017-05-19 22:15 | NUR ---
Awake, mildly restless. c/o being warm. Bath given. Moderately SOB during care. HR up to 90's with PVCs, tachypneic and lips become cyanotic. Stayed with patient; reassured appropriately. Sat improved after few minutes. HOB elevated above 30 degrees at all times. Patient monitored closely.
[2017-05-20] VITALS (23 sets, daily range): BP systolic 94–135; BP diastolic 56–93
[2017-05-20] MEDS: MORPHINE SULFATE 4 MG/1 ML DISP.SYRIN IV SCH ×6 (00:10→21:37)
[2017-05-20] MEDS: ACETAMINOPHEN 325 MG TABLET PO PRN (02:41)
[2017-05-20] MEDS: VANCOMYCIN IV 1,250 MG in IV DEXTROSE 5% 500 ML IV SCH ×3 (02:58→18:36)
--- NOTE | 2017-05-20 04:00 | NUR ---
Continues BiPaP mask; desaturates with minimal physical exertion.
[2017-05-20 05:03] LABS: ALANINE AMINOTRANSFERASE 140 U/L (16-63); ALKALINE PHOSPHATASE 147 U/L (50-136); ASPARTATE AMINOTRANSFERASE 63 U/L (15-37); BILIRUBIN,TOTAL 1.3 mg/dL (0.2-1.0); CARBON DIOXIDE 29 mmol/L (21-32); CHLORIDE 103 mmol/L (98-107); GLUCOSE 196 mg/dL (74-106); MAGNESIUM 2.3 mg/dL (1.8-2.4); PHOSPHOROUS 2.7 mg/dL (2.5-4.9); POTASSIUM 3.7 mmol/L (3.5-5.1); TOTAL PROTEIN, SERUM 5.2 g/dL (6.4-8.2); UREA NITROGEN, BLOOD 21 mg/dL (7-18)
[2017-05-20] MEDS: PIPERACILLIN/TAZOBACTAM/D5W 3.375 G in PREMIXED 1 EACH IV SCH ×3 (05:03→21:48)
[2017-05-20 05:04] LABS: BASOPHILS % (AUTO) 0.1 % (0.0-2.0); LYMPHOCYTES # (AUTO) 0.6 K/UL (0.8-4.8)
[2017-05-20 05:05] LABS: EOSINOPHILS # (AUTO) 0.2 K/uL (0.0-0.7); EOSINOPHILS % (AUTO) 0.7 % (0.0-7.0); HEMATOCRIT 32.8 % (40-50); HEMOGLOBIN 11.4 G/DL (14.0-18.0); LYMPHOCYTES % (AUTO) 2.6 % (20.5-51.5); MEAN CORPUSCULAR HEMOGLOBIN 32.7 UUG (27.0-31.0); MEAN CORPUSCULAR HGB CONC 35 g/dL (32.0-37.0); MEAN CORPUSCULAR VOLUME 93.8 FL (82.0-92.0); MONOCYTES # (AUTO) 0.1 K/UL (0.1-1.30); MONOCYTES % (AUTO) 0.5 % (0.0-11.0); NEUTROPHILS # (AUTO) 21.6 K/UL (1.8-8.9); NEUTROPHILS % (AUTO) 96.1 % (38.5-71.5); PLATELET COUNT (AUTO) 229 K/UL (150-450); RED BLOOD CELL COUNT(AUTO) 3.49 MIL/UL (4.7-6.1); WHITE BLOOD COUNT (AUTO) 22.5 K/UL (4.0-11.2)
[2017-05-20] MEDS ORDERED: DEXTROSE 5% IV SCH (06:00)
[2017-05-20] MEDS ORDERED: METHYLPREDNISOLONE SOD SUCC IV SCH (06:00)
[2017-05-20 06:02] LABS: ABG BASE EXCESS 3.4 mmol/L; ABG HCO3 25.9 mmol/L; ABG PCO2 31.9 mmHg (35.0-45.0); ABG PH 7.528 (7.350-7.450); ABG PO2 113.2 mmHg (75.0-100.0); ABG SITE LEFT RADIAL; ABG TOTAL HEMOGLOBIN 10.4 G/dL (13.5-18.0); COHb 1.2 % (0.5-1.5); MetHb 0.6 % (0.0-1.5); O2Hb 96.7 % (94.0-97.0); VENT MODE BIPAP
[2017-05-20] MEDS: IV NORMAL SALINE 250 ML IV PRN (06:27)
[2017-05-20] MEDS: PANTOPRAZOLE SODIUM 40 MG TABLET.DR PO SCH (06:32)
[2017-05-20] MEDS: SILDENAFIL 20 MG TABLET PO SCH ×3 (06:32→21:47)
--- NOTE | 2017-05-20 08:00 | NUR ---
Pt received on BiPAP settings as follows: Rate of 16, 10/7, 100 FiO2. compliance monitor and BiPAP alarms working properly wnl. Gaspar catheter intact and draining properly. Fall precautions and safety measures maintained. Pt stable and nad noted.
[2017-05-20] MEDS: ENOXAPARIN SODIUM 80 MG/0.8 ML DISP.SYRIN SQ SCH (08:03)
[2017-05-20] MEDS: BLOOD SUGAR DIAGNOSTIC 1 EACH STRIP VI SCH ×4 (08:06→21:24)
[2017-05-20] MEDS: INSULIN REGULAR, HUMAN 300 UNIT/3 ML VIAL SQ PRN ×2 (08:08→16:00)
[2017-05-20] MEDS: LACTOBACILLUS RHAMNOSUS GG 1 EACH CAPSULE PO SCH ×2 (08:08→21:47)
[2017-05-20] MEDS: ASPIRIN 81 MG TAB.CHEW PO SCH (08:08)
[2017-05-20] MEDS: MIRALAX 17 GM POWD.PACK PO SCH (08:09)
--- NOTE | 2017-05-20 08:46 | NUR ---
IV Morphine held this morning. Pt noted to be relaxed and stable. No complaints of pain. SBP in the low 90's.
[2017-05-20] MEDS: ALBUTEROL SULFATE 2.5 MG/ 0.5 ML NEBU NEB PRN ×2 (09:03→22:57)
[2017-05-20] MEDS: ACETYLCYSTEINE 10% 4ML VIAL NEB SCH ×3 (09:04→22:57)
--- NOTE | 2017-05-20 12:04 | NUR ---
Dr. De La Torre ([employer] Retailer) here to see pt. Full report given. No new orders received.
[2017-05-20] MEDS ORDERED: ENOXAPARIN SODIUM 30 MG/0.3 ML DISP.SYRIN SUBCUT SCH (12:30)
[2017-05-20] MEDS ORDERED: methylPREDNISolone SOD SUCC 125 MG/2 ML VIAL IV SCH (14:00)
[2017-05-20] MEDS: DEXTROSE 5% IV SCH ×2 (15:04→21:48)
[2017-05-20] MEDS: METHYLPREDNISOLONE SOD SUCC IV SCH ×2 (15:04→21:48)
--- NOTE | 2017-05-20 15:50 | NUR ---
Clinical Pharmacy Note: Vancomycin Dosing per Pharmacy Subjective: Vancomycin IV to continue on this 81 y/o male for suspected infection (pna vs pulmonary fibrosis) ht 5' 7'' wt 150 lb Objective: BUN 21 Scr 1.0 WBC 22.5 (on solum-medrol , dose reduced to 200mg iv q8hrs) Temperature 98 Vancomycin trough 22.6 today at 1050 Assessment/Plan: Since Vancomycin trough is over the therapeutica range, will hold dose and draw random again in 4 hrs of last trough(ordered at 1500). Will check the random level for further dosing. Addendum: 05/20/17 at 1649 by MICHAEL BURCIAGA ADM VANCOMYCIN RANDOM AT 1610 IS 17.2 WILL CHANGE DOSE TO 1250MG IV EVERY 12 HRS AND DRAW TROUGH BY 4TH DOSE FOR EXPECTED TROUGH AROUND 15.
[2017-05-20] MEDS: INSULIN REGULAR, HUMAN 300 UNITS/3 ML VIAL SQ PRN (21:26)
[2017-05-20] MEDS: ATORVASTATIN 20 MG TABLET PO SCH (21:47)
[2017-05-20] MEDS: IPRATROPIUM BROMIDE 0.5 MG/2.5 ML NEBU NEB PRN (22:57)
[2017-05-21] VITALS (14 sets, daily range): BP systolic 0–159; BP diastolic 0–92
--- NOTE | 2017-05-21 00:01 | NUR ---
Restless tonight. Repeatedly pulled off oxygen; causing major desaturations. Now, using BiPaP mask 100%. Now, wearing bilateral soft wrist restraints.
[2017-05-21] MEDS: MORPHINE SULFATE 4 MG/1 ML DISP.SYRIN IV SCH ×2 (00:19→04:09)
[2017-05-21] MEDS: ACETAMINOPHEN 325 MG TABLET PO PRN (01:36)
--- NOTE | 2017-05-21 04:00 | NUR ---
Xochilt notified of condition change. Unstable vital signs. called & talked to DPOA daughter Yani. Patient to receive Morphine Q1H as comfort measures.
[2017-05-21] MEDS: IV NORMAL SALINE 250 ML IV PRN (04:39)
[2017-05-21] MEDS: MORPHINE SULFATE 2 MG/1 ML DISP.SYRIN IVP SCH ×3 (05:00→07:00)
[2017-05-21] MEDS ORDERED: MORPHINE SULFATE 4 MG/1 ML DISP.SYRIN ONE ×3 (05:15→07:29)
[2017-05-21 05:46] LABS: ALANINE AMINOTRANSFERASE 172 U/L (16-63); ALKALINE PHOSPHATASE 226 U/L (50-136); ASPARTATE AMINOTRANSFERASE 90 U/L (15-37); BILIRUBIN,TOTAL 1.8 mg/dL (0.2-1.0); CARBON DIOXIDE 24 mmol/L (21-32); CHLORIDE 102 mmol/L (98-107); CREATININE 1.3 mg/dL (0.6-1.3); GLUCOSE 237 mg/dL (74-106); MAGNESIUM 2.6 mg/dL (1.8-2.4); PHOSPHOROUS 5.3 mg/dL (2.5-4.9); POTASSIUM 4.3 mmol/L (3.5-5.1); TOTAL PROTEIN, SERUM 6.1 g/dL (6.4-8.2); UREA NITROGEN, BLOOD 26 mg/dL (7-18)
[2017-05-21 05:59] LABS: BASOPHILS # (AUTO) 0.1 K/uL (0.0-8.0); BASOPHILS % (AUTO) 0.2 % (0.0-2.0); EOSINOPHILS % (AUTO) 0.1 % (0.0-7.0); HEMATOCRIT 40.1 % (40-50); HEMOGLOBIN 13.6 G/DL (14.0-18.0); LYMPHOCYTES # (AUTO) 0.5 K/UL (0.8-4.8); LYMPHOCYTES % (AUTO) 1.1 % (20.5-51.5); MEAN CORPUSCULAR HEMOGLOBIN 32.5 UUG (27.0-31.0); MEAN CORPUSCULAR HGB CONC 34 g/dL (32.0-37.0); MEAN CORPUSCULAR VOLUME 95.7 FL (82.0-92.0); MONOCYTES # (AUTO) 0.4 K/UL (0.1-1.30); MONOCYTES % (AUTO) 0.8 % (0.0-11.0); NEUTROPHILS # (AUTO) 45.1 K/UL (1.8-8.9); NEUTROPHILS % (AUTO) 97.8 % (38.5-71.5); PLATELET COUNT (AUTO) 286 K/UL (150-450); RED BLOOD CELL COUNT(AUTO) 4.19 MIL/UL (4.7-6.1)
[2017-05-21] MEDS: VANCOMYCIN IV 1,250 MG in IV DEXTROSE 5% 500 ML IV SCH (06:00)
[2017-05-21] MEDS: METHYLPREDNISOLONE SOD SUCC IV SCH (06:00)
[2017-05-21] MEDS: SILDENAFIL 20 MG TABLET PO SCH (06:00)
[2017-05-21] MEDS: DEXTROSE 5% IV SCH (06:00)
[2017-05-21] MEDS: PIPERACILLIN/TAZOBACTAM/D5W 3.375 G in PREMIXED 1 EACH IV SCH (06:00)
[2017-05-21 06:19] LABS: WHITE BLOOD COUNT (AUTO) 46.1 K/UL (4.0-11.2)
[2017-05-21] MEDS: PANTOPRAZOLE SODIUM 40 MG TABLET.DR PO SCH (06:30)
[2017-05-21] MEDS: ALBUTEROL SULFATE 2.5 MG/ 0.5 ML NEBU NEB PRN (07:14)
[2017-05-21] MEDS: ACETYLCYSTEINE 10% 4ML VIAL NEB SCH (07:14)
--- NOTE | 2017-05-21 07:15 | NUR ---
RECEIVED PT ON CONTINUOUS BIPAP. IN LINE TX GIVEN ORDERED. NO VENT CHANGES MADE AT THIS TIME. WILL CONTINUE TO MONITOR.
[2017-05-21] MEDS: BLOOD SUGAR DIAGNOSTIC 1 EACH STRIP VI SCH (07:30)
[2017-05-21] MEDS: MIRALAX 17 GM POWD.PACK PO SCH (07:44)
[2017-05-21] MEDS: ASPIRIN 81 MG TAB.CHEW PO SCH (07:44)
[2017-05-21] MEDS: LACTOBACILLUS RHAMNOSUS GG 1 EACH CAPSULE PO SCH (07:44)
[2017-05-21 08:56] LABS: BAND % (MANUAL) 5 % (0-10); LYMPHOCYTES % (MANUAL) 1 % (20-40); METAMYELOCYTES % 1 % (0-1); MONOCYTES % (MANUAL) 5 % (2-10); NEUTROPHILS % (MANUAL) 88 % (42-75)
[2017-05-21] MEDS ORDERED: CLOPIDOGREL 75 MG TABLET PO SCH (09:00)
[2017-05-21] MEDS ORDERED: ENOXAPARIN SODIUM 40 MG/0.4 ML DISP.SYRIN SQ SCH (09:00)
[2017-05-21] MEDS ORDERED: ENOXAPARIN SODIUM 30 MG/0.3 ML DISP.SYRIN SUBCUT SCH ×2 (09:00)
[2017-05-21] MEDS ORDERED: MORPHINE SULFATE PF IV DRIP 250 MG in IV DEXTROSE 5% 240 ML IV PRN (09:15)
[2017-05-21] MEDS ORDERED: MORPHINE SULFATE 2 MG/1 ML DISP.SYRIN IVP PRN (09:15)
--- NOTE | 2017-05-21 09:20 | NUR ---
Spoke with Dr. Hernandez on the telephone regarding family's request for IV morphine drip and DNR/DNI status. New orders received and carried out.
--- NOTE | 2017-05-21 10:05 | NUR ---
Dr. Hernandez here to see pt. spoke with family at the bedside at length and are all in agreement with pt's plan of care for IV morphine drip and comfort care measures only.
--- NOTE | 2017-05-21 13:15 | NUR ---
Patient taken off Bipap and placed on Nasal Cannula 6 lpm for comfort measures. family at bedside. RN Gene aware.
--- NOTE | 2017-05-21 14:08 | NUR ---
Pt pronounced and . Family at the bedside with the pt and aware. MD and Nursing printing and stamping supervisor aware.
--- NOTE | 2017-05-21 16:40 | NUR ---
Brought the pt down to the [facility] with security. Family and Nursing supervisor parachute manufacturing aware that pt is down in the [facility]. Addendum: 05/21/17 at 1656 by IGNACIO CAIN RN All PIV lines and saenz catheter removed. Post-mortem care completed.
== END 2017-05-21 14:08 | disposition expired | DRG 871 ==
LOC: ER 11:40 → TELE-TD 16:45 → CCU 05-15 13:26
PROVIDERS: ADMIT Nurse Practitioner Acute Care; ATTEND Nurse Practitioner Acute Care
PROC: 5A09557 Assistance with Respiratory Ventilation, Greater than 96 Consecutive Hours, Continuous Positive Airway Pressure (ICD-10-PCS; principal; 2017-05-19)
DX: A41.9 Sepsis, unspecified organism (principal); E43 Unspecified severe protein-calorie malnutrition; J18.9 Pneumonia, unspecified organism; I21.4 Non-ST elevation (NSTEMI) myocardial infarction; J96.21 Acute and chronic respiratory failure with hypoxia; I50.43 Acute on chronic combined systolic (congestive) and diastolic (congestive) heart failure; E87.1 Hypo-osmolality and hyponatremia; D68.59 Other primary thrombophilia; J47.0 Bronchiectasis with acute lower respiratory infection; J84.114 Acute interstitial pneumonitis; Z66 Do not resuscitate; Z51.5 Encounter for palliative care; J84.112 Idiopathic pulmonary fibrosis; K21.9 Gastro-esophageal reflux disease without esophagitis; Z96.643 Presence of artificial hip joint, bilateral; K44.9 Diaphragmatic hernia without obstruction or gangrene; I25.10 Atherosclerotic heart disease of native coronary artery without angina pectoris; F41.9 Anxiety disorder, unspecified; F29 Unspecified psychosis not due to a substance or known physiological condition; E87.6 Hypokalemia; I46.9 Cardiac arrest, cause unspecified; I27.2 Other secondary pulmonary hypertension; D64.9 Anemia, unspecified; I70.0 Atherosclerosis of aorta; E87.70 Fluid overload, unspecified; Z86.19 Personal history of other infectious and parasitic diseases; T38.0X5A Adverse effect of glucocorticoids and synthetic analogues, initial encounter; Y92.89 Other specified places as the place of occurrence of the external cause; R73.9 Hyperglycemia, unspecified; M19.90 Unspecified osteoarthritis, unspecified site; Z74.09 Other reduced mobility; I08.2 Rheumatic disorders of both aortic and tricuspid valves
CPT/HCPCS: 36415; 36600; 70030-TC; 71010; 71275; 83605; 83735; 84100; 85025; 85730; 87040; 87070; 93005; 93307; 94002; 94640; 94660; 94664; A4217; A4663; J1642; J1650; J1815; J1940; J2270; J2274; J2543; J2930; J3370; J3480; J3590; J7030; J7050; J7060; Q9967